=== PATIENT | male | born 1955 | race African-American/Black ===

== ENCOUNTER 2017-02-21 12:55 | Emergency (ER) | payer OTHER ==
[2017-02-21 13:08] VITALS: BMI 21.9
[2017-02-21] MEDS ORDERED: PANTOPRAZOLE SODIUM 40 MG in SODIUM CHLORIDE 100 ML IVPB ONE (18:01)
[2017-02-21] MEDS ORDERED: ONDANSETRON 4 MG/2 ML VIAL IVPB ONE (18:01)
[2017-02-21] MEDS ORDERED: SODIUM CHLORIDE 1,000 ML IV STA ×2 (18:01→21:08)
[2017-02-21] MEDS ORDERED: morphine CARPU-JECT 4 MG/1 ML DISP.SYRIN IVPUSH ONE (18:01)
--- NOTE | 2017-02-21 18:48 | PDOC ---
History of Present Illness - General Chief Complaint: Nausea/Vomiting Stated Complaint: CHEST PAIN, DIZZINESS Time Seen by Provider: 02/21/17 17:12 - History of Present Illness Initial Comments: 02/21/17 18:46 "61 year old male, with no significant past medical history, who presents to the emergency room complaining of 3 days of multiple episodes of nonbloody vomiting and burning chest pain that is constant and radiates up to his throat. The patient notes that the vomiting started after eating pork sausage 3 days ago. Since then, he has been unable to hold down any food or water. He denies having any significant abdominal pain other than cramps while vomiting but endorses a burning sensation in his chest that developed after several episodes of vomiting. The patient also notes that he has not had a bowel movement in 4 days. Denies fever, chills. Denies sick contact. Denies recent travel. Denies surgical history. Denies ETOH/marijuana/substance abuse. Allergies: NKA PCP: none Past History - Past Medical History Allergies/Adverse Reactions: Allergies Allergy/AdvReac Type Severity Reaction Status Date / Time No Known Allergies Allergy Verified 02/21/17 13:08 Home Medications: Ambulatory Orders Famotidine [Pepcid] 40 mg PO DAILY #30 tablet 02/21/17 Ondansetron [Zofran *Odt*] 4 mg SL TID #30 od.tablet 02/21/17 COPD: No Other medical history: NONE - Suicide/Smoking/Psychosocial Hx Smoking History: Never smoked Information on smoking cessation initiated: No Hx Alcohol Use: No Drug/Substance Use Hx: No Review of Systems - Review of Systems Comments:: 02/21/17 18:50 "GENERAL/CONSTITUTIONAL: No fever or chills. No weakness. HEAD, EYES, EARS, NOSE AND THROAT: No change in vision. No ear pain or discharge. No sore throat. CARDIOVASCULAR: +burning chest pain that radiates to the throat. No shortness of breath. RESPIRATORY: No cough, wheezing, or hemoptysis. GASTROINTESTINAL: +nausea, vomiting. No diarrhea. GENITOURINARY: No dysuria, frequency, or change in urination. MUSCULOSKELETAL: No joint or muscle swelling or pain. No neck or back pain. SKIN: No rash NEUROLOGIC: No headache, vertigo, loss of consciousness, or change in strength/ sensation. ENDOCRINE: No increased thirst. No abnormal weight change. HEMATOLOGIC/LYMPHATIC: No anemia, easy bleeding, or history of blood clots. ALLERGIC/IMMUNOLOGIC: No hives or skin allergy. " *Physical Exam - Vital Signs Last Vital Signs Temp Pulse Resp BP Pulse Ox 98.1 F 79 20 125/76 100 02/21/17 13:03 02/21/17 13:03 02/21/17 13:03 02/21/17 13:03 02/21/17 13:03 - Physical Exam Comments: 02/21/17 18:51 "GENERAL: Awake, alert, and fully oriented, in no acute distress HEAD: No signs of trauma EYES: PERRLA, EOMI, sclera anicteric, conjunctiva clear ENT: Auricles normal inspection, hearing grossly normal, nares patent, oropharynx clear without exudates. Moist mucosa NECK: Nontender, no stepoffs, Normal ROM, supple, no lymphadenopathy, JVD, or masses LUNGS: Breath sounds equal, clear to auscultation bilaterally. No wheezes, and no crackles HEART: Regular rate and rhythm, normal S1 and S2, no murmurs, rubs or gallops ABDOMEN: Soft, +epigastric TTP, negative collins's, normoactive bowel sounds. No guarding, no rebound. No masses EXTREMITIES: Normal range of motion, no edema. No clubbing or cyanosis. No cords, erythema, or tenderness NEUROLOGICAL: Cranial nerves II through XII intact. 5/5 strength and sensation in all extremities, Normal speech, normal gait SKIN: Warm, Dry, normal turgor, no rashes or lesions noted. " Heart Score/ECG Review - ECG Impressions Comment:: 02/21/17 18:51 NSR, no SILAS/STDs, no TWIs, intervals wnl, axis wnl ED Treatment Course - LABORATORY CBC & Chemistry Diagram: 02/21/17 19:20 02/21/17 19:05 - RADIOLOGY Radiology Studies Ordered: Category Date Time Status CHEST X-RAY PORTABLE* [RAD] Stat Radiology 02/21/17 18:01 Taken Medical Decision Making - Medical Decision Making 02/21/17 18:52 61 M with nausea, vomiting x 3 days. Abdominal exam with epigastric tenderness. Concerning for possible pancreatitis. Negative collins's, making acute [place] unlikely. No lower abdominal tenderness to suggest appy or colitis/ diverticulitis. - Labs, trop, lipase - CXR - GI cocktail - Reassess 02/21/17 19:45 Pt signed out to oncoming attending at 7PM, pending labwork, imaging, and re- evaluation. *DC/Admit/Observation/Transfer Diagnosis at time of Disposition: Gastritis - Discharge Dispostion Disposition: HOME Condition at time of disposition: Improved - Prescriptions Prescriptions: Famotidine [Pepcid] 40 mg PO DAILY #30 tablet Ondansetron [Zofran *Odt*] 4 mg SL TID #30 od.tablet - Referrals Referrals: Joe Wilkinson MD [Staff Physician] - Ronnie Warren MD [Staff Physician] - - Patient Instructions Printed Discharge Instructions: DI for Gastritis Additional Instructions: Please follow up with the referral given to you if symptoms don't improve - Post Discharge Activity
[2017-02-21] MEDS ORDERED: ONDANSETRON 4 MG/2 ML VIAL ONE (19:07)
[2017-02-21] MEDS ORDERED: morphine SULFATE 4 MG/ML VIAL ONE (19:07)
[2017-02-21] MEDS ORDERED: PANTOPRAZOLE SODIUM 40 MG/100 ML BAG IVPB ONE (19:13)
[2017-02-21 19:32] LABS: BASOPHIL 0.5 % (0-2.0); EOSINOPHIL 1.1 % (0-4.5); MCH 28.9 pg (25.7-33.7); MCHC 32.5 g/dl (32.0-35.9); MEAN CELL VOLUME 89.1 fl (80-96); MEAN PLT VOLUME 10.3 fl (7.5-11.1); NEUTROPHILS 68.6 % (42.8-82.8); PLATELET COUNT 196 K/MM3 (134-434); RDW 14.4 % (11.9-15.9); WHITE BLOOD COUNT 6.6 K/mm3 (4.0-10.0)
[2017-02-21 19:43] LABS: INR 1.19 (0.82-1.09); PROTHROMBIN TIME (PATIENT) 13.4 SEC (9.98-11.88)
[2017-02-21 20:03] LABS: ALBUMIN 3.9 g/dl (3.4-5.0); ANION GAP 7 (8-16); CALCIUM 8.9 mg/dL (8.5-10.1); CO2 29 mmol/L (21-32); CREATININE 0.8 mg/dL (0.7-1.3); GLUCOSE,RANDOM 88 mg/dL (74-106); SGOT/AST 17 U/L (15-37); SGPT/ALT 26 U/L (12-78)
[2017-02-21 20:05] LABS: ALK PHOS 69 U/L (45-117); BILIRUBIN,TOTAL 0.9 mg/dL (0.2-1.0); TOT PROT 7.4 g/dl (6.4-8.2)
[2017-02-21 20:07] LABS: CPK 315 IU/L (39-308); TROPONIN I < 0.02 ng/ml (0.00-0.05)
[2017-02-21 22:02] VITALS: BP 135/113; PULSE 73; TEMP 98.7
--- NOTE | 2017-02-21 23:13 | PDOC ---
*Physical Exam - Vital Signs Last Vital Signs Temp Pulse Resp BP Pulse Ox 98.7 F 73 18 135/113 100 02/21/17 21:49 02/21/17 21:49 02/21/17 21:49 02/21/17 21:49 02/21/17 21:49 ED Treatment Course - LABORATORY CBC & Chemistry Diagram: 02/21/17 19:20 02/21/17 19:05 - ADDITIONAL ORDERS Additional order review: Laboratory Results 02/21/17 02/21/17 02/21/17 19:20 19:05 19:05 PT with INR 13.40 H INR 1.19 H PTT (Actin FS) Sodium 140 Potassium 3.9 Chloride 104 Carbon Dioxide 29 Anion Gap 7 L BUN 10 Creatinine 0.8 Creat Clearance w eGFR > 60 Random Glucose 88 Lactic Acid Calcium 8.9 Total Bilirubin 0.9 AST 17 ALT 26 Alkaline Phosphatase 69 Creatine Kinase Creatine Kinase Index CK-MB (CK-2) Troponin I Total Protein 7.4 Albumin 3.9 Lipase 113 Blood Type B NEGATIVE Antibody Screen Negative 02/21/17 02/21/17 02/21/17 19:05 19:05 19:00 PT with INR INR PTT (Actin FS) 35.0 H Sodium Potassium Chloride Carbon Dioxide Anion Gap BUN Creatinine Creat Clearance w eGFR Random Glucose Lactic Acid 1.2 Calcium Total Bilirubin AST ALT Alkaline Phosphatase Creatine Kinase 315 H Creatine Kinase Index 0.6 CK-MB (CK-2) 2.143 Troponin I < 0.02 Total Protein Albumin Lipase Blood Type Antibody Screen 02/21/17 19:20 RBC 4.59 MCV 89.1 MCHC 32.5 RDW 14.4 MPV 10.3 Neutrophils % 68.6 Lymphocytes % 22.1 Monocytes % 7.7 Eosinophils % 1.1 Basophils % 0.5 - Medications Given in the ED: ED Medications Discontinued Medications Generic Name Dose Route Start Last Admin Trade Name Freq PRN Reason Stop Dose Admin Pantoprazole Sodium 40 mg/ 100 mls @ 200 mls/hr 02/21/17 18:01 02/21/17 19:20 Sodium Chloride IVPB 02/21/17 18:30 200 mls/hr ONCE ONE Administration Sodium Chloride 1,000 mls @ 1,000 mls/hr 02/21/17 18:01 02/21/17 19:20 Normal Saline - IV 02/21/17 19:00 1,000 mls/hr ASDIR STA Administration Sodium Chloride 1,000 mls @ 1,000 mls/hr 02/21/17 21:08 02/21/17 21:14 Normal Saline - IV 02/21/17 22:07 1,000 mls/hr ASDIR STA Administration Morphine Sulfate 4 mg 02/21/17 18:01 02/21/17 19:11 Morphine Injection - IVPUSH 02/21/17 18:02 4 mg ONCE ONE Administration Ondansetron HCl 4 mg 02/21/17 18:01 02/21/17 19:11 Zofran Injection IVPB 02/21/17 18:02 4 mg ONCE ONE Administration *DC/Admit/Observation/Transfer Diagnosis at time of Disposition: Gastritis Qualifiers: Gastritis type: unspecified gastritis Chronicity: unspecified Gastritis bleeding: presence of bleeding unspecified Qualified Code(s): K29.70 - Gastritis , unspecified, without bleeding - Discharge Dispostion Disposition: HOME Condition at time of disposition: Improved Admit: No - Referrals Referrals: Joe Wilkinson MD [Staff Physician] - Ronnie Warren MD [Staff Physician] - - Patient Instructions Printed Discharge Instructions: DI for Gastritis Additional Instructions: Please follow up with the referral given to you if symptoms don't improve - Post Discharge Activity
--- NOTE | 2017-02-22 12:54 | EKG ---
Test Reason : Blood Pressure : / mmHG Vent. Rate : 052 BPM Atrial Rate : 052 BPM P-R Int : 156 ms QRS Dur : 090 ms QT Int : 434 ms P-R-T Axes : 060 -16 027 degrees QTc Int : 403 ms SINUS BRADYCARDIA NONSPECIFIC ST ABNORMALITY ABNORMAL ECG NO PREVIOUS ECGS AVAILABLE Confirmed by CYRIL LOPEZ MD ([id number]) on 02/22/2017 12:53:50 PM Referred By: Confirmed By:CYRIL LOPEZ MD
== END 2017-02-22 02:13 | disposition home or self-care (01) ==
LOC: JER 12:55
PROC: 3E033GC Introduction of Other Therapeutic Substance into Peripheral Vein, Percutaneous Approach (ICD-10-PCS; principal; 2017-02-21)
PROC: 3E033NZ Introduction of Analgesics, Hypnotics, Sedatives into Peripheral Vein, Percutaneous Approach (ICD-10-PCS; 2017-02-21)
PROC: 3E033GC Introduction of Other Therapeutic Substance into Peripheral Vein, Percutaneous Approach (ICD-10-PCS; 2017-02-21)
DX: K29.70 Gastritis, unspecified, without bleeding (principal)
CPT/HCPCS: 36415; 71010-TC; 80053; 82550; 82553; 83605; 83690; 84484; 85025; 85610; 85730; 86850; 86900; 86901; 93005; 93010; 96361; 96365; 96375; 99285-25

== ENCOUNTER 2017-02-23 11:05 | Emergency (ER) | payer OTHER ==
[2017-02-23 11:38] VITALS: TEMP 97.8; BMI 21.6
[2017-02-23] MEDS ORDERED: SODIUM CHLORIDE 1,000 ML IV STA (11:42)
[2017-02-23] MEDS ORDERED: ONDANSETRON 4 MG/2 ML VIAL IVPB ONE (11:43)
--- NOTE | 2017-02-23 11:43 | PDOC ---
History of Present Illness - General Chief Complaint: Nausea/Vomiting Stated Complaint: STOMACH PAIN Time Seen by Provider: 02/23/17 11:23 History Source: Patient Exam Limitations: No Limitations - History of Present Illness Initial Comments: 02/23/17 11:45 61 y/o male presents with a 3 day history of nausea and vomiting. Pt ate some "bad sausage" about a week ago. Pt was seen at [facility] ER on 02/21/17, where he was diagnosed with gastritis and discharged with Pepcid and Zofran. Pt was unable to tolerate the medication yesterday, stating that he has been vomiting everything up, even water. Symptoms not relieved or worsened by anything. Pt also complains of constipation, and not having a bowel movement in the last 5 days. Denies any abdominal pain, diarrhea, urinary symptoms, or fevers. 02/23/17 11:55 02/23/17 11:59 Past History - Travel Traveled outside of the country in the last 30 days: No Close contact w/someone who was outside of country & ill: No - Past Medical History Allergies/Adverse Reactions: Allergies Allergy/AdvReac Type Severity Reaction Status Date / Time No Known Allergies Allergy Verified 02/21/17 13:08 Home Medications: Ambulatory Orders Famotidine [Pepcid] 40 mg PO DAILY #30 tablet 02/21/17 Ondansetron [Zofran *Odt*] 4 mg SL TID #30 od.tablet 02/21/17 Anemia: No Asthma: No Cancer: No Cardiac Disorders: No Hx Myocardial Infarction: No CVA: No COPD: No CHF: No DVT: No Dementia: No Diabetes: No Dialysis: No GI Disorders: No Disorders: No HTN: No Hypercholesterolemia: No HIV: No Kidney Stones: No Liver Disease: No Psychiatric Problems: No Seizures: No Thyroid Disease: No Lung CA: No - Surgical History Abdominal Surgery: No Appendectomy: No Cardiac Surgery: No Cholecystectomy: No Gastric Stapling: No GI Surgery: No Lung Surgery: No Neurologic Surgery: No Orthopedic Surgery: No - Immunization History Immunization Up to Date: Yes - Suicide/Smoking/Psychosocial Hx Smoking History: Never smoked Hx Alcohol Use: No Drug/Substance Use Hx: No Substance Use Type: None Review of Systems - Review of Systems Constitutional: Yes: See HPI, Loss of Appetite HEENTM: Yes: See HPI. No: Symptoms Reported Respiratory: Yes: See HPI. No: Symptoms reported Cardiac (ROS): Yes: See HPI. No: Symptoms Reported ABD/GI: Yes: See HPI. No: Symptoms Reported : Yes: See HPI. No: Symptoms Reported Musculoskeletal: Yes: See HPI. No: Symptoms Reported Integumentary: Yes: See HPI. No: Symptoms Reported Neurological: Yes: See HPI. No: Symptoms reported All Other Systems: Reviewed and Negative *Physical Exam - Vital Signs Last Vital Signs Temp Pulse Resp BP Pulse Ox 97.8 F 53 L 16 158/95 100 02/23/17 11:22 02/23/17 11:22 02/23/17 11:22 02/23/17 11:22 02/23/17 11:22 - Physical Exam General Appearance: Yes: Nourished, Appropriately Dressed HEENT: positive: EOMI, GIUSEPPE, Normal ENT Inspection Neck: positive: Trachea midline, Normal Thyroid Respiratory/Chest: positive: Lungs Clear, Normal Breath Sounds Cardiovascular: positive: Regular Rhythm, Regular Rate Gastrointestinal/Abdominal: positive: Normal Bowel Sounds, Soft Musculoskeletal: positive: Normal Inspection Extremity: positive: Normal Capillary Refill, Normal Inspection Integumentary: positive: Normal Color, Warm ED Treatment Course - LABORATORY CBC & Chemistry Diagram: 02/23/17 11:55 02/23/17 11:55 Medical Decision Making - Medical Decision Making 02/23/17 12:10 61 yo male worked up two days ago for same symptoms, completely negative, presents again stating that meds are not working. Initially concerned that they did not do any testing, but he received morphine initially and probably does not remember some of the things that were done for him. Feels something must really be wrong. Has not initiated any follow up as of yet. Will recheck labs, hold off on any re-imaging and treat him symptomatically. 02/23/17 14:41 Patient tolerated [place] and Apple Juice with no difficulty and no pain. Will DC home on previous homegoing meds. Follow up with Dr. Warren *DC/Admit/Observation/Transfer Diagnosis at time of Disposition: Gastritis Qualifiers: Gastritis type: unspecified gastritis Chronicity: unspecified Gastritis bleeding: without bleeding Qualified Code(s): K29.70 - Gastritis, unspecified, without bleeding - Discharge Dispostion Disposition: HOME Condition at time of disposition: Good Admit: No - Referrals Referrals: Ronnie Warren MD [Staff Physician] - - Patient Instructions Printed Discharge Instructions: DI for Gastritis, DI for Vomiting -- Adult Additional Instructions: Gerry- So sorry that you do not feel well. Continue to use the medicines they prescribed the other day. Return to us if any problems..... Follow up with the Packing Line Operator..... Best- Dr. Ky Nettles - Post Discharge Activity
[2017-02-23] MEDS ORDERED: ONDANSETRON 4 MG/2 ML VIAL ONE (11:46)
[2017-02-23 12:04] LABS: BASOPHIL 1.1 % (0-2.0); EOSINOPHIL 1.4 % (0-4.5); MCH 29.1 pg (25.7-33.7); MCHC 33.3 g/dl (32.0-35.9); MEAN CELL VOLUME 87.5 fl (80-96); MEAN PLT VOLUME 10.3 fl (7.5-11.1); NEUTROPHILS 64.1 % (42.8-82.8); PLATELET COUNT 174 K/MM3 (134-434); RDW 13.7 % (11.9-15.9); WHITE BLOOD COUNT 4.8 K/mm3 (4.0-10.8)
[2017-02-23 12:24] LABS: ALBUMIN 3.8 g/dl (3.5-5.0); ALK PHOS 50 U/L (32-92); ANION GAP 8 (8-16); BILIRUBIN,TOTAL 1.2 mg/dl (0.2-1.0); CALCIUM 8.9 mg/dl (8.4-10.2); CO2 27 mmol/L (22-28); CREATININE 0.9 mg/dl (0.6-1.3); GLUCOSE,RANDOM 96 mg/dl (74-106); SGOT/AST 32 U/L (10-42); SGPT/ALT 21 U/L (10-40); TOT PROT 6.7 g/dl (6.4-8.3)
[2017-02-23 12:25] LABS: INR 1.27 (0.82-1.09); PROTHROMBIN TIME (PATIENT) 14.1 SEC (10.2-13.0)
[2017-02-23 13:19] LABS: ALBUMIN 3.8 g/dl (3.5-5.0); ALK PHOS 51 U/L (32-92); BILIRUBIN,TOTAL 0.9 mg/dl (0.2-1.0); SGOT/AST 31 U/L (10-42); SGPT/ALT 21 U/L (10-40); TOT PROT 6.6 g/dl (6.4-8.3)
[2017-02-23 13:23] LABS: BILIRUBIN,DIRECT < 0.2 mg/dL (0.0-0.3)
[2017-02-23] MEDS ORDERED: ONDANSETRON *ODT* 4 MG TABLET SL ONE (13:43)
[2017-02-23] MEDS ORDERED: ONDANSETRON *ODT* 4 MG TABLET ONE (14:06)
[2017-02-23 14:16] LABS: URINE APPEARANCE Clear; URINE BILIRUBIN Negative (NEGATIVE); URINE BLOOD Negative (NEGATIVE); URINE GLUCOSE (UA) Negative (NEGATIVE); URINE KETONE 2+ (NEGATIVE); URINE LEUK ESTERASE Negative (NEGATIVE); URINE NITRITE Negative (NEGATIVE); URINE PROTEIN Negative (NEGATIVE)
[2017-02-23 14:22] LABS: URINE COLOR YELLOW
[2017-02-23] MEDS ORDERED: KETOROLAC TROMETHAMINE 30 MG/1 ML VIAL IVPUSH ONE (14:51)
[2017-02-23] MEDS ORDERED: KETOROLAC TROMETHAMINE 30 MG/1 ML VIAL ONE (14:52)
[2017-02-23 15:58] VITALS: BP 130/81; PULSE 56
== END 2017-02-23 15:57 | disposition home or self-care (01) ==
LOC: FER 11:05
PROC: 3E0333Z Introduction of Anti-inflammatory into Peripheral Vein, Percutaneous Approach (ICD-10-PCS; principal; 2017-02-23)
PROC: 3E033GC Introduction of Other Therapeutic Substance into Peripheral Vein, Percutaneous Approach (ICD-10-PCS; 2017-02-23)
PROC: 3E0337Z Introduction of Electrolytic and Water Balance Substance into Peripheral Vein, Percutaneous Approach (ICD-10-PCS; 2017-02-23)
DX: K29.70 Gastritis, unspecified, without bleeding (principal)
CPT/HCPCS: 36415; 80053; 80076; 81003; 83690; 85025; 85610; 96361; 96374; 96375; 99283-25